=== PATIENT | female | born 1965 | race Hispanic/Latino ===

== ENCOUNTER 2018-09-23 14:46 | Emergency (ER) | payer BC ==
[2018-09-23 15:01] VITALS: RESP 18
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
--- NOTE | 2018-09-23 17:34 | MRI ---
Date of service: 09/23/2018 PROCEDURE: MR LUMBAR SPINE WITHOUT CONTRAST HISTORY: Injury associated with numbness in feet and pain i COMPARISON: None available. TECHNIQUE: Multiecho multiplanar sequences were performed through the lumbar spine without the use of intravenous contrast. FINDINGS: There appears to be a transitional vertebral body segment that probably represents lumbarized S1 vertebral body segment. This will be named S1 for leveling purposes of this exam and continuity for future comparison studies. Chronic appearing anterior stature loss of what appears to be the T12 segment with minimal edema along the anterior superior corner of this vertebral body segment possibly representing a developing Schmorl's node.. The vertebral bodies otherwise exhibit normal stature. Slight anterior subluxation of L5 over S1. This is likely due to facet arthropathy as no definitive pars defects seen. Marrow signal otherwise unremarkable. Conus terminates at approximately the L1-L2 level. Paraspinal soft tissues are unremarkable. T12-L1: No disc herniation, spinal canal stenosis or neural foraminal narrowing. L1-2: Mild disc desiccation and disc space narrowing more so along the anterior disc margin. No disc herniation or significant disc bulge. The overall central canal and exit foramina appear adequate. Facets are mildly hypertrophic.. Mild multilevel degenerative spondylosis. L2-3: Adequate disc height with mild age related disc desiccation.. No disc herniation or significant disc bulge. Facets are mildly hypertrophic. Central canal and exit foramina appear adequate.. . L3-4: Adequate disc height with mild age related disc desiccation.. No disc herniation or significant disc bulge. Facets are mildly hypertrophic. Central canal and exit foramina appear adequate.. L4-5: There is mild disc desiccation with mild disc space narrowing. Small broad-based asymmetric bulge of the posterior annulus larger on the right than left with what appears represent a tiny proximal right foraminal protrusion component. Slight flattening of the ventral surface of the thecal sac. The overall central canal is quite capacious. Facets are hypertrophic with intrafacetal fluid as well. Right exit foramen is mildly narrowed. Left exit foramen adequate. L5-S1: Minor disc desiccation with minimal posterior disc space narrowing. Slight uncovering of the posterior superior surface of the disc due to the aforementioned minimal anterior subluxation. Small broad-based bulge of the posterior annulus extends slightly into the proximal inferior margins of both exit foramina. Facets are quite hypertrophic. There is a small amount of intrafacetal fluid. Apparent small cystic changes left L5 nerve root sleeve. OTHER FINDINGS: Note made of multiple at least 2 prominent right adnexal cysts the largest of which measures approximately 2.5 cm in greatest dimension.. Follow-up ultrasound could be performed if further evaluation is required. IMPRESSION: No acute fractures. Minor edema however seen within the anterior superior corner of the T12 segment likely representing developing Schmorl's node. Mild multilevel degenerative spondylosis most significantly affecting the facet joints with mild right-sided foraminal stenosis L4-L5 level as detailed above. There are small cystic changes right ovary. Follow-up pelvic ultrasound could be performed for further evaluation if indicated.
[2018-09-23 19:32] VITALS: BP 156/92; PULSE 85; TEMP 97.6; O2SAT 99
== END 2018-09-23 19:31 | disposition home or self-care (01) ==
LOC: C.ER 14:46
DX: S39.012A Strain of muscle, fascia and tendon of lower back, initial encounter (principal); X50.0XXA Overexertion from strenuous movement or load, initial encounter; Y93.F9 Activity, other caregiving; Y92.121 Bathroom in nursing home as the place of occurrence of the external cause; Y99.0 Civilian activity done for income or pay